=== PATIENT | male | born 1980 | race Caucasian/White ===

== ENCOUNTER 2019-01-22 19:48 | Emergency (ER) | payer OTHER ==
[~2019-01-22] VITALS: Ht 180.3 cm; Wt 97.5 kg
[2019-01-22] MEDS ORDERED: LIDOCAINE 1% INJ 20 ML 20 ML VIAL INJ ONE (20:15)
[2019-01-22] MEDS ORDERED: TETANUS,DIPTH,PERTUSS P/F (BOOSTRIX) 0.5 ML VIAL IM ONE (20:15)
--- NOTE | 2019-01-22 20:54 | ED Integumentary General ---
General Chief Complaint: Laceration Stated Complaint: CUT FINGER, LEFT HAND AT WORK Nursing Triage Note: Ambulatory to triage. Pt reports cutting 4th finger on L hand on food dicer at work. Bleeding controlled at this time. Source: patient Exam Limitations: no limitations History of Present Illness Date Seen by Provider: Jan 22, 2019 Time Seen by Provider: 20:15 Allergies and Home Medications Allergies Coded Allergies: No Known Drug Allergies (Unverified , 01/22/19) Past Veosvki-Qgttvh-Qtlyzt Hx Patient Social History Alcohol Use: Occasionally Uses Alcohol Beverage of Choice: Beer Recreational Drug Use: No 2nd Hand Smoke Exposure: No Recent Foreign Travel: No Contact w/Someone Who Travel: No Recent Infectious Disease Expo: No Recent Hopitalizations: No Physical Abuse: No Sexual Abuse: No Seasonal Allergies Seasonal Allergies: No Past Medical History Surgeries: No Respiratory: No Cardiac: No Neurological: No Genitourinary: No Gastrointestinal: No Musculoskeletal: No Endocrine: No HEENT: No Cancer: No Psychosocial: No Integumentary: No Blood Disorders: No Adverse Reaction/Blood Tranf: No Physical Exam Vital Signs Vital Signs - First Documented 01/22/19 19:57 Temp 98.2 Pulse 103 Resp 18 B/P (MAP) 160/92 (114) Pulse Ox 97 O2 Delivery Room Air Capillary Refill : Less Than 3 Seconds Progress/Results/Core Measures Results/Orders My Orders Orders - [facility]GRATH Dipht,Pertuss(Acell),Tet Adult (Boostrix (01/22/19 20:15) Lidocaine 1% Inj 20 Ml (Xylocaine 1% Inj (01/22/19 20:15) Medications Given in ED Current Medications Medications Dose Ordered Sig/Boogie Route Start Time Stop Time Status Last Admin Dose Admin Diphtheria/ Tetanus/Acell Pertussis 0.5 ml ONCE ONCE IM 01/22/19 20:15 01/22/19 20:16 DC 01/22/19 20:24 0.5 ML Lidocaine HCl 20 ml ONCE ONCE INJ 01/22/19 20:15 01/22/19 20:16 DC 01/22/19 20:40 20 ML Vital Signs/I&O 01/22/19 19:57 Temp 98.2 Pulse 103 Resp 18 B/P (MAP) 160/92 (114) Pulse Ox 97 O2 Delivery Room Air Blood Pressure Mean: 114 Departure Impression Primary Impression: Laceration Disposition: 01 HOME, SELF-CARE Condition: Stable/Unchanged Departure-Patient Inst. Decision time for Depature: 20:54 Referrals: NO,LOCAL PHYSICIAN (PCP) Primary Care Physician Patient Instructions: Laceration Repair With Stitches (DC) Add. Discharge Instructions: Wear the splint at all times until you get the stitches removed. Return back to the emergency room in 7 days to have the stitches removed. You may use Tylenol and Motrin as directed by the bottle for pain relief. Watch for signs of infection such as increased redness, swelling, drainage, pain. Follow-up with primary care as needed. Return back to the emergency room for worsening symptoms or concerns as needed. All discharge instructions reviewed with patient and/or family. Voiced understanding. SI[facility] MCGRATH Jan 22, 2019 20:54
[2019-01-22 20:57] VITALS: BP 149/89
== END 2019-01-22 20:57 | disposition home or self-care (01) ==
LOC: ER 19:50
DX: S61.215A Laceration without foreign body of left ring finger without damage to nail, initial encounter (principal); Z23 Encounter for immunization; W27.4XXA Contact with kitchen utensil, initial encounter; Y92.59 Other trade areas as the place of occurrence of the external cause; Y99.0 Civilian activity done for income or pay
CPT/HCPCS: 12001; 90715